=== PATIENT | female | born 1960 | race Caucasian/White ===

== ENCOUNTER 2016-09-09 10:03 | Emergency (ER) | payer OTHER ==
--- NOTE | ~2016-09-09 | EKG ---
PATIENT: YI ANTONIO UNIT #: [id number] Ventricular Rate: 89 BPM Atrial Rate: 89 BPM P-R Interval: 136 ms QRS Duration: 88 ms Q-T Interval: 396 ms QTC Calculation(Bezet): 481 ms P [place]: 41 degrees Calculated R [place]: 85 degrees Calculated T [place]: 65 degrees Diagnosis Line: Normal sinus rhythm Diagnosis Line: Prolonged QT Diagnosis Line: Abnormal ECG Diagnosis Line: When compared with ECG of 19-JAN-2015 09:22, Diagnosis Line: No significant change was found Diagnosis Line: Confirmed by XOCHITL GARCIA MD ([id number]) on Diagnosis Line: 09/13/2016 9:01:06 AM INTERPRETING MD: RADHA MONREAL
--- NOTE | ~2016-09-09 | CR72 ---
[facility] A Service of [facility] RADIOLOGY TEXT RESULTS PATIENT: YI ANTONIO LOCATION: SED : 60 UNIT #: [id number] AGE: [address]: Hosea Lim MD SEX: F ORDER DR: [id number] [address] [address] [id number] MR#: [id number] Acc #: [id number] NAME: YI ANTONIO : 1960 SEX: F STUDY DATE/TIME: 09/09/2016 1035 UNIT: SED ROOM: STUDY DESCRIPTION: CR Chest Single View Portable Attending Physician: Hosea Lim M.D. Ordering Physician: Hosea Lim M.D. Primary Care Physician: No Primary Care Physician MEDICAL IMAGING REPORT This report is preliminary unless electronic signature is present. EXAM Chest, portable, 09/09/2016, 1035 hours. CLINICAL HISTORY 56-year-old with chest tightness, shortness of air, fatigue and left arm pain since last night. History of previous cardiac surgery. COMPARISON 01/19/2015 FINDINGS Single portable upright chest demonstrates median sternotomy change with normal heart size. Mediastinal, hilar, and aortic contours are normal. The lungs are clear. There are no effusions. IMPRESSION Median sternotomy change with no acute cardiopulmonary findings. No appreciable change from 01/19/2015. Dictated by... Virginia Victor M.D. THIS IS AN ELECTRONICALLY VERIFIED REPORT Virginia Victor M.D. at 09/10/2016 9:29 AM NATAN/domenica TD: 09/09/2016 15:23 JOB #: [id number] MEDICAL IMAGING REPORT [facility] A Service of [facility] RADIOLOGY TEXT RESULTS PATIENT: YI ANTONIO LOCATION: SED : 60 UNIT #: [id number] AGE: [address]: Hosea Lim MD SEX: F ORDER DR: Page 1 of 1
[~2016-09-09 10:03] MED LIST: ASPIRIN81 M2 PO; ERYTHROMYCIN O3.5 GM OP; FLEXERIL PO; IBUPROFEN PO; INDOMETHACIN25 MG PO; LASIX20 MG PO; LIPITOR PO; NITROSTAT0.4 MG SL; SPIRIVA18 MCG PO; SYMBICORT INH; VICODIN 5/500 T1 TAB PO; WELLBUTRIN PO; ZOLOFT PO
[2016-09-09] MEDS ORDERED: PROAIR HFA8.5 GM (10:10)
[2016-09-09] MEDS ORDERED: ADVAIR 250-501 EACH (10:11)
[2016-09-09 10:38] LABS: BASOPHIL# 0.1 X10e3 (0-0.3); BASOPHIL% 1.2 % (0-2.5); EOSINOPHIL# 0.1 X10e3 (0-0.7); EOSINOPHIL% 1.9 % (0.0-7.0); HEMATOCRIT 40.7 % (35.0-45.0); HEMOGLOBIN 13.5 gm/dL (12.0-16.0); LYMPHOCYTE# 2.3 X10e3 (1.0-3.5); LYMPHOCYTE% 34.4 % (17.0-45.0); MEAN CELL VOLUME 90.2 FL (83-96); MEAN CORPUSCULAR HGB CONC 33.2 g/dL (30-36); MEAN PLATELET VOLUME 8.3 FL (6.5-11.5); MONOCYTE# 0.5 X10e3 (0-1.0); MONOCYTE% 6.8 % (3.0-12.0); NEUTROPHIL# 3.8 X10e3 (1.5-7.1); NEUTROPHIL% 55.7 % (40-75); PLATELET COUNT 233 X10e3 (140-420); RED BLOOD COUNT 4.52 X10e (3.90-5.30); RED CELL DISTRIBUTION WIDTH 14.3 % (11.0-15.5); WHITE BLOOD COUNT 6.8 X10e3 (4.0-10.5)
[2016-09-09 10:39] LABS: DIFF IND NO
[2016-09-09 10:41] LABS: POC - CKMB 2.3 ng/mL (0.0-7.9); POC - TROPONIN <0.05 ng/mL (<=0.05)
[2016-09-09 10:42] LABS: PROTHROMBIN TIME (PATIENT) 11.1 SECONDS (9.5-12.4)
[2016-09-09 10:49] LABS: PARTIAL THROMBOPLASTIN TIME 26.7 SECONDS (25.6-38.1)
[2016-09-09 10:51] LABS: ALBUMIN SERUM 4.2 g/dL (3.5-5.0); ALKALINE PHOSPHATASE 97 U/L (32-92); ALT (SGPT) 27 U/L (10-40); AST (SGOT) 25 U/L (10-42); BILIRUBIN,TOTAL 0.4 mg/dL (0.2-2.0); BLOOD UREA NITROGEN 13 mg/dL (9-23); BUN/CREATININE RATIO 18.57; CARBON DIOXIDE 22 mmol/L (22-31); CHLORIDE 103 mmol/L (100-111); CREATININE SERUM 0.7 mg/dL (0.6-1.4); GLOM FILT RATE Estimated 96.9 mL/min (>60); GLUCOSE FASTING 138 mg/dL (70-110); PROTEIN TOTAL SERUM 7.6 g/dL (6.0-8.3); SODIUM 135 mmol/L (135-145)
[2016-09-09 10:52] LABS: BILIRUBIN, DIRECT <0.1 mg/dL (0.0-0.2); BILIRUBIN,INDIRECT 0.3 mg/dL (0.0-0.9)
[2016-09-09 12:16] LABS: POC - CKMB 2.2 ng/mL (0.0-7.9); POC - TROPONIN <0.05 ng/mL (<=0.05)
== END 2016-09-09 12:56 | disposition home or self-care (01) ==
LOC: SED 10:03
PROVIDERS: Emergency Medicine
DX: R07.89 Other chest pain (principal); R06.02 Shortness of breath; M19.90 Unspecified osteoarthritis, unspecified site; E78.5 Hyperlipidemia, unspecified; I10 Essential (primary) hypertension; Z90.710 Acquired absence of both cervix and uterus; Z95.1 Presence of aortocoronary bypass graft; Z88.0 Allergy status to penicillin; Z79.82 Long term (current) use of aspirin; Z79.899 Other long term (current) drug therapy
CPT/HCPCS: 36415; 71010; 80048; 80076; 82553; 83880; 84484; 85025; 85610; 85730; 93005; 99285